=== PATIENT | male | born 1950 | race Caucasian/White ===

== ENCOUNTER 2016-11-08 13:16 | Emergency (ER) | payer MEDICARE ==
[~2016-11-08] VITALS: Ht 182.9 cm; Wt 100.0 kg
[2016-11-08] MEDS ORDERED: LIDOCAINE 1%/EPINEPHrine 1:100,000 SOLN 20 ML VIAL INFIL ONE (13:30)
[2016-11-08] MEDS ORDERED: NAPR375T PO (13:30)
[2016-11-08 13:31] VITALS: BP 140/89; PULSE 88; RESP 18; TEMP 98; O2SAT 98
[2016-11-08] MEDS ORDERED: TETANUS/DIPHTHERIA TOXOID ADULT 0.5 ML VIAL IM ONE (14:00)
--- NOTE | 2016-11-08 14:10 | PD ---
HPI . Left hand laceration Chief Complaint: Laceration/Skin Injury Time Seen by Provider: 13:22 Travel History International Travel<30 days: No Contact w/Intl Traveler<30days: No Traveled to known affect area: No History of Present Illness HPI Patient presents with a laceration to his left hand. He states that he had just finished sharpening a filet knife he inadvertently dropped it on his left hand. He does not know the date of his last tetanus shot. He is able to move and feel everything distally. The bleeding is severe. Pain is minimal. Bleeding is not controlled with pressure. Patient reports that he takes about 6 aspirin a day for aches and pains. PFSH Past Medical History Arthritis: Yes Cancer: Yes (melanoma) Tetanus Vaccination: > 5 Years Influenza Vaccination: No Social History Alcohol Use: Yes Tobacco Use: No Substance Use: No Allergies-Medications (Allergen,Severity, Reaction): Coded Allergies: No Known Allergies (Unverified , 11/08/16) Reported Meds & Prescriptions Reported Meds & Active Scripts Active Reported Naproxen 375 Mg Tab 375 Mg PO BID Review of Systems Except as stated in HPI: all other systems reviewed are Neg Musculoskeletal: No: Myalgias, Arthralgias Skin: Positive Other (laceration) Neurologic: No: Weakness, Paresthesia Physical Exam Narrative GENERAL: Awake and alert and in no acute distress. SKIN: Warm and dry. Good color. He has a 4cm laceration on the dorsal aspect of the left hand. Bleeding is not controlled. CARDIOVASCULAR: Regular rate and rhythm. Normal capillary refill. RESPIRATORY: No accessory muscle use. MUSCULOSKELETAL: No obvious deformities. No edema. Normal movement of his fingers. NEUROLOGICAL: Awake and alert. No obvious cranial nerve deficits. Motor grossly within normal limits. Normal speech. PSYCHIATRIC: Appropriate mood and affect; insight and judgment normal. Data Data Last Documented VS Vital Signs Date Time Temp Pulse Resp B/P Pulse Ox O2 Delivery O2 Flow Rate FiO2 11/08/16 13:31 98.0 88 18 140/89 98 Orders Lidocai-Epi 1%-1:100,000 Inj (Xylocaine- (11/08/16 13:30) Tetanus/Diphtheria Tox Adult (Tetanus/Di (11/08/16 14:00) MDM Medical Decision Making Medical Screen Exam Complete: Yes Emergency Medical Condition: Yes Differential Diagnosis Differential diagnosis includes but is not limited to skin laceration, muscular laceration, tendon laceration, neurovascular laceration. Narrative Course Patient presents with a laceration on the dorsal aspect of his left hand. Bleeding was not controlled. Tetanus has been updated. Critical Care Narrative Aggregate critical care time was 30 minutes. Time to perform other separately billable procedures was not included in the critical care time. My time did not include minutes spent treating any other patients simultaneously or on activities that did not directly contribute to the patient's treatment. The services I provided to this patient were to treat and/or prevent clinically significant deterioration due to profuse bleeding I provided critical care services requiring my management, as noted below: Chart data review, documentation time, medication orders and management, vital sign assessments/reviewing monitor data, ordering and reviewing lab tests, ordering and interpreting/reviewing x-rays and diagnostic studies, care of the patient and discussion of the patient with the admitting physicians Procedures Procedure Narrative LACERATION LOCATION: Left hand LENGTH: 4 cm NUMBER OF STITCHES/CHLOE: 4 A tourniquet was applied to the upper arm. REPAIR: The area of the laceration was prepped with Betadine. The laceration was infiltrated with A cc of 1% lidocaine with epi. The wound was not copiously irrigated and explored as bleeding was not controlled. The wound was closed using 4-0 proline. This was a single layer repair. A pressure dressing was applied. Patient tolerated the procedure well. Physician Communication Physician Communication Dr. Hodge see the patient in the ED at [facility]. Diagnosis Primary Impression: Laceration of left hand Qualified Code: S61.412A - Laceration of left hand without foreign body, initial encounter Condition: Stable Beverly Aaron MD Nov 08, 2016 14:10
[2016-11-08 15:49] VITALS: BP 145/72; PULSE 74; RESP 18; O2SAT 99
--- NOTE | 2016-11-08 17:02 | PD ---
Physical Exam Narrative Patient was seen by Dr. Aaron, [facility] and transferred to [facility] to see the hand surgeon, Dr. Hodge. Data Data Last Documented VS Vital Signs Date Time Temp Pulse Resp B/P Pulse Ox O2 Delivery O2 Flow Rate FiO2 11/08/16 15:49 74 18 145/72 99 Room Air 11/08/16 13:31 98.0 Orders Lidocai-Epi 1%-1:100,000 Inj (Xylocaine- (11/08/16 13:30) Tetanus/Diphtheria Tox Adult (Tetanus/Di (11/08/16 14:00) MDM Supervised Visit with VIRA: No Narrative Course Patient was transferred to the main emergency room to see hand surgeon Dr. Hodge. Diagnosis Primary Impression: Laceration of left hand Qualified Code: S61.412A - Laceration of left hand without foreign body, initial encounter Condition: Stable Yg Portillo MD Nov 08, 2016 17:02
[2016-11-08] MEDS ORDERED: LIDOCAINE HCL 1% 50 ML VIAL INFIL ONE (17:30)
[2016-11-08] MEDS ORDERED: NORC5TAB PO (19:22)
[2016-11-08] MEDS ORDERED: CEPH-460 PO (19:22)
--- NOTE | 2016-11-08 19:22 | PD ---
Physical Exam Narrative Patient was seen by ED physician and signed out to me. Laceration is repaired by Dr. Hodge, hand surgeon. Data Data Last Documented VS Vital Signs Date Time Temp Pulse Resp B/P Pulse Ox O2 Delivery O2 Flow Rate FiO2 11/08/16 15:49 74 18 145/72 99 Room Air 11/08/16 13:31 98.0 Orders Lidocai-Epi 1%-1:100,000 Inj (Xylocaine- (11/08/16 13:30) Tetanus/Diphtheria Tox Adult (Tetanus/Di (11/08/16 14:00) Lidocaine 1% Inj (50 Ml) (Xylocaine 1% I (11/08/16 17:30) Cefazolin 2 Gm Premix (Ancef 2 Gm Premix (11/08/16 19:30) MDM Supervised Visit with VIRA: No Narrative Course Laceration to left hand repair by Dr. Hodge, hand surgeon. Ancef 2 g IV given. Diagnosis Primary Impression: Laceration of left hand Qualified Code: S61.412A - Laceration of left hand without foreign body, initial encounter Patient Instructions: General Instructions Additional Instruction: Follow-up with Dr. Hodge as directed. Take medications as directed. Return if increasing redness swelling. Scripts Hydrocodone-Acetaminophen (Zenda)5-325 mg Tab1 Tab PO Q6H PRN (PAIN) #20 TAB Ref 0 Prov:Yg Portillo MD 11/08/16 Cephalexin (Keflex)500 Mg [id number] Mg PO Q8H #21 CAP Ref 0 Prov:Yg Portillo MD 11/08/16 Disposition: 01 DISCHARGE HOME Condition: Stable Yg Portillo MD Nov 08, 2016 19:22
[2016-11-08] MEDS ORDERED: ceFAZolin 2 GM PREMIX 50 ML IV ONE (19:30)
--- NOTE | 2016-11-08 20:16 | RADRPT ---
EXAM DATE/TIME: 11/08/2016 19:56 [facility] COMPARISON: No previous studies available for comparison. INDICATIONS : Posterior left hand laceration. Possible foreign body. MEDICAL HISTORY : None. SURGICAL HISTORY : None. ENCOUNTER: Initial ACUITY: 1 day PAIN SCORE: 2/10 LOCATION: Left posterior hand FINDINGS: There is no radiopaque foreign body. There is an air in the dorsal radial side of the seen. CONCLUSION: Laceration with air. There is no radiopaque foreign body. Joss Chamberlain MD FACR on November 08, 2016 at 20:14 Board Certified Radiologist. This report was verified electronically.
[2016-11-08 20:50] VITALS: BP 143/70
--- NOTE | 2016-11-09 06:43 | MB ---
cc: MIKE MORFIN DATE OF CONSULTATION 11/08/2016 REASON FOR CONSULTATION Laceration dorsum of left hand with significant bleeding. HISTORY OF PRESENT ILLNESS Claudy Kiran is a pleasant 66-year-old right-hand dominant male who states that he was sharpening his knives which were clean and he accidentally dropped it onto the dorsum of his left hand. He presented to [facility] where the emergency physician attempted to irrigate and close the wound but there was concern for significant bleeding so called for evaluation. I requested the patient [facility] for the potential of OR capabilities. The patient denies any paresthesias. He denies prior significant injury to the left hand. PAST MEDICAL HISTORY Melanoma PAST SURGICAL HISTORY Skin graft from the right leg to the right posterior leg. SOCIAL HISTORY Denies tobacco or drug use. Reports social alcohol use. ALLERGIES None. DRUG ALLERGIES None. MEDICATIONS Naproxen. PHYSICAL EXAMINATION GENERAL: The patient is alert and oriented, in no distress. VITAL SIGNS: Stable. EXAMINATION OF THE LEFT HAND: An approximately 5-cm laceration on the dorsum of the left hand going from the first webspace, across the dorsum of the hand at the level of the CMC joint. The patient has full extension of all of his fingers including the thumb and good flexion. Sensation is intact in the median, ulnar and radial distributions. The patient has less than 2-second capillary refill to all fingers with a 2+ radial pulse. The patient has four sutures in place with an expanding hematoma on the dorsum of the hand. Compartments are soft and compressible. IMAGING STUDIES X-rays of the left hand were reviewed which showed no evidence of fracture. Open wound, again over the CMC joint of the hand. ASSESSMENT AND PLAN A 66-year-old left-hand dominant male with a sutured laceration of the dorsum of the hand with expanding hematoma and, per the emergency room physician, significant bleeding from the dorsum of the hand. Treatment options were discussed with the patient including leaving the sutures in place and observation, opening the incision in the emergency room and repairing any injured structures versus taking the patient to the operating room. The patient declined formal surgery in the operating room but did consent to exploration of the penetrating wound, irrigation, debridement, repair of any injured structures, control of the bleeding. He elected to proceed. The risks were explained but not limited to wound complications, infection, stiffness, pain, need for additional surgery and he elected to proceed in the emergency room. MD BERNADETTE Nicolas/CHARITY /11:11 PM /6:36 AM DEBRA
--- NOTE | 2016-11-09 22:12 | MP ---
cc: MIKE MORFIN MD DATE OF SURGERY 11/08/2016 PREOPERATIVE DIAGNOSIS Penetrating wound left hand with open wound left hand with significant bleeding POSTOPERATIVE DIAGNOSIS Penetrating wound left hand with open wound left hand with significant bleeding PROCEDURE 1. Irrigation debridement open wound left hand including skin, subcutaneous tissue, muscle and hemostasis 2. Complex closure open wound left hand measuring approximately 4 cm. 3. Exploration penetrating wound left hand. HISTORY OF PRESENT ILLNESS Claudy Kiran is a pleasant 66-year-old male with a large open wound on the dorsum of the left hand which was unable to be repaired by the emergency room physician due to significant bleeding. The patient wished to proceed with surgical intervention. Risks were explained to include but not limited to wound complications, infection, persistent bleeding, need for additional surgeries, pain, stiffness and he elected to proceed. DESCRIPTION OF PROCEDURE The patient signed informed consent and requested the procedure be performed in the emergency room rather than the operating room. A blood pressure cuff was used as a tourniquet. This was inflated for approximately 40 minutes. The prior sutures that were placed on dorsum of the wound were removed. The wound and hand were cleansed with Hibiclens. Local anesthesia was performed with 10cc of 2% lidocaine with no epinephrine. The wound was irrigated with saline and a large hematoma from the prior intervention was debrided. The extensor tendons were found to be intact to the index, middle, ring and small fingers as well as the EPL. The laceration extended all the way to the capsule of the index CMC joint. There was brisk bleeding coming from a vein as well as a branch of a dorsal artery on the first web space of the left hand. This was tied off with a 4-0 Vicryl as well as cauterized. The tourniquet was released. There was some brisk bleeding which was again controlled and the tourniquet was reinflated for visualization. Then after the tourniquet was released for the second time there was no more brisk bleeding. The wound was then again irrigated. The patient was given IV antibiotics. The capsule was closed with 4-0 Monocryl. The skin was closed with 4-0 Monocryl and 4-0 chromic. Following this, wound was cleansed and then bacitracin with Adaptic, 4x4s, Sof-Rol and an Dimas was placed. The patient will be given oral antibiotics and I will see him in 1 week for a wound check. He was advised not to take more than 600 mg of naproxen per day. MD BERNADETTE Nicolas/ /11:16 PM /9:57 PM DEB[facility]
== END 2016-11-08 21:27 | disposition home or self-care (01) ==
LOC: PHED 13:16 → NEPC 21:27
DX: S61.412A Laceration without foreign body of left hand, initial encounter (principal); Z23 Encounter for immunization; W26.0XXA Contact with knife, initial encounter; Y93.89 Activity, other specified; Y92.9 Unspecified place or not applicable; Y99.8 Other external cause status
CPT/HCPCS: 13132; 73120; 90471; 90714; 96365; 99284; J0690; 99281